=== PATIENT | female | born 1935 | race Caucasian/White ===

== ENCOUNTER → 2017-01-25 | Outpatient (CLI) | payer OTHER | END | disposition home or self-care (01) | LOC: PCVCCLINIC 11:35 | PROVIDERS: ATTEND Internal Medicine Cardiovascular Disease | DX: I47.1 Supraventricular tachycardia (principal); I10 Essential (primary) hypertension; I25.3 Aneurysm of heart; E03.9 Hypothyroidism, unspecified; Z85.850 Personal history of malignant neoplasm of thyroid; Z90.710 Acquired absence of both cervix and uterus; Z79.82 Long term (current) use of aspirin; Z87.891 Personal history of nicotine dependence; Z88.0 Allergy status to penicillin | CPT/HCPCS: 80061; G0463 ==

== ENCOUNTER → 2017-03-08 | Outpatient (CLI) | payer OTHER ==
[~2017-03-08] MED LIST: ASPIRIN 325 MG TABLET ONE
--- NOTE | 2017-03-08 14:28 | PCVCIMAG ---
APPROVED REPORT Exam: Stress Echocardiogram Indication: Hyperlipidemia, Hypertension, Patient Location: Echo lab Stress Nurse: Jazz Cueto RN Status: routine Ht: 5 ft 4 in HR: 77 bpm BP: 140/80 mmHg Rhythm: NSR Procedure The patient underwent an Exercise Stress Test using the Ron Protocol. Blood pressure, heart rate, and EKG were monitored. An Echocardiogram was performed by reproduction technician in four stages in quad fashion. At peak stress, four selected images were obtained and placed side by side with resting images for comparison. Stress Test Details Stress Test: Exercise stress testing was performed using a Ron protocol. HR Resting HR: 77 bpmMax Heart Rate (APMHR): 141 bpm Max HR Achieved: 150 bpmTarget HR (85% APMHR): 119 bpm % of APMHR: 106 HR response to stress: Normal HR response to stress BP Resting BP: 140/80 mmHg Max BP: 162/82 mmHg ECG Resting ECG: Sinus Rhythm Stress ECG: Sinus Rhythm Arrhythmia: VPC's Recovery ECG: Sinus Rhythm Recovery ST Change: ST Elevation, ST depression. Recovery Arrhythmia: VPC Clinical Reason for Termination: Maximal effort Exercise duration: 7 min 48 sec Highest Stage Achieved: Stage 3: 3.4 mph at 14% grade. Exercise capacity: 10.10 METs Overall Exercise Capacity for Age: Normal Pre-Stress Echo The resting Echocardiogram showed normal left ventricular contractility with an estimated Ejection Fraction of about >55%. Post-Stress Echo The stress Echocardiogram showed abnormal left ventricular contractility with an estimated Ejection Fraction of about 50-55%. Distal Septum, Apical, Anterior and lateral wall hypokinesis. Conclusion Clinical Response: Ischemic Exercise Capacity: Average Stress ECG Response: Ischemic Stress Echo Images: Ischemic Other Information Study Quality: Good
== END | disposition home or self-care (01) ==
LOC: PCVCIMAG 10:53
PROVIDERS: ATTEND Internal Medicine Cardiovascular Disease
DX: I10 Essential (primary) hypertension (principal); E78.5 Hyperlipidemia, unspecified
CPT/HCPCS: 93325; 93351

== ENCOUNTER → 2017-04-26 | Outpatient (CLI) | payer OTHER ==
--- NOTE | 2017-04-26 15:01 | PCVCIMAG ---
APPROVED REPORT Study performed: 04/26/2017 11:02:27 EXAM: Comprehensive 2D, Doppler, and color-flow Echocardiogram Patient Location: Echo lab Status: routine BSA: 1.67 HR: 53 bpmBP: 140/82 mmHg Rhythm: Bradycardia Other Information Study Quality: Adequate Risk Factors: Cardiac Risk Factors: HTN Indications Dyspnea Cardiomyopathy PSVT, hx of takostubo cardiomyopathy, assess LV function 2D Dimensions LVEF(%): 39.01 (>50%) IVSd: 9.51 (7-11mm) LVDd: 46.91 mm PWd: 9.06 (7-11mm) LVDs: 38.05 (25-40mm) Left Atrium: 41.58 (27-40mm) Aortic Root: 33.54 mm LV Single Plane 4CH: 61.64 % LV Single Plane 2CH: 61.92 %Curtis's LVEF: 61.78 % Biplane EF: 62.1 % Volumes Left Atrial Volume (Systole) Single Plane 4CH: 74.24 mLSingle Plane 2CH: 47.34 mL LA ESV Index: 40.00 mL/m2 Aortic Valve AoV Peak Moshe.: 1.12 m/s AO Peak Gr.: 5.02 mmHgLVOT Max P.02 mmHg LVOT Max V: 0.87 m/s AI Vmax: 4.41 m/s AI Trego: 2.09 m/s2 AI PHT: 610.09 ms Mitral Valve E/A Ratio: 0.7 MV Decel. Time: 312.49 ms MV E Max Moshe.: 0.57 m/s MV A Moshe.: 0.81 m/s MV PHT: 90.62 ms IVRT: 148.79 ms Pulmonary Valve PV Peak Moshe.: 0.80 m/sPV Peak Gr.: 2.54 mmHg Pulmonary Vein P Vein S: 0.27 m/sP Vein A: 0.83 m/s P Vein D: 0.35 m/sP Vein A Dur.: 145.3 msec P Vein S/D Ratio: 0.77 Tricuspid Valve TR Peak Moshe.: 2.82 m/s TR Peak Gr.: 31.87 mmHg Left Ventricle The left ventricle is normal size. There is normal LV segmental wall motion. There is normal left ventricular wall thickness. Left ventricular systolic function is normal. The left ventricular ejection fraction is within the normal range. LVEF is 60-65%. Grade I - abnormal relaxation pattern. Right Ventricle The right ventricle is normal size. The right ventricular systolic function is normal. Atria Left atrium is mildly dilated. Aneurysmal atrial septum, no PFO noted. The right atrium size is normal. Aortic Valve The aortic valve is normal in structure. Mild aortic regurgitation. There is no aortic valvular stenosis. Mitral Valve The mitral valve is normal in structure. Trace mitral regurgitation. No evidence of mitral valve stenosis. Tricuspid Valve The tricuspid valve is normal in structure. There is no tricuspid valve regurgitation noted. Pulmonic Valve The pulmonary valve is normal in structure. There is no pulmonic valvular regurgitation. Great Vessels The aortic root is normal in size. IVC is normal in size and collapses with >50% inspiration Pericardium There is no pericardial effusion. <Conclusion> The left ventricle is normal size. LVEF is 60-65%. Grade I - abnormal relaxation pattern. The right ventricle is normal size. Left atrium is mildly dilated. The right atrium size is normal. Mild aortic regurgitation. There is no aortic valvular stenosis. Trace mitral regurgitation. There is no tricuspid valve regurgitation noted. There is no pericardial effusion.
== END | disposition home or self-care (01) ==
LOC: PCVCIMAG 10:36
PROVIDERS: ATTEND Internal Medicine Cardiovascular Disease
DX: I10 Essential (primary) hypertension (principal); I51.81 Takotsubo syndrome; I48.0 Paroxysmal atrial fibrillation; I47.1 Supraventricular tachycardia; I25.3 Aneurysm of heart; I25.10 Atherosclerotic heart disease of native coronary artery without angina pectoris; R94.31 Abnormal electrocardiogram [ECG] [EKG]; R06.00 Dyspnea, unspecified; Z87.891 Personal history of nicotine dependence; Z79.899 Other long term (current) drug therapy
CPT/HCPCS: 93005; 93306; G0463

== ENCOUNTER → 2017-08-26 | Outpatient (CLI) | payer OTHER ==
[~2017-08-26] MED LIST changes: -ASPIRIN 325 MG TABLET ONE; +REGADENOSON 0.4 MG/5 ML DISP.SYRIN. IV
== END | disposition home or self-care (01) ==
LOC: PCVCIMAG 08:11
DX: I48.0 Paroxysmal atrial fibrillation (principal); I25.10 Atherosclerotic heart disease of native coronary artery without angina pectoris; I42.9 Cardiomyopathy, unspecified; I10 Essential (primary) hypertension; E78.5 Hyperlipidemia, unspecified
CPT/HCPCS: 78452; 93017; A9500; J2785

== ENCOUNTER → 2018-04-29 | Outpatient (CLI) | payer OTHER | END | disposition home or self-care (01) | LOC: PCVCCLINIC 14:00 | PROVIDERS: ATTEND Internal Medicine Cardiovascular Disease | DX: I25.10 Atherosclerotic heart disease of native coronary artery without angina pectoris (principal); R94.31 Abnormal electrocardiogram [ECG] [EKG]; I51.81 Takotsubo syndrome; I47.1 Supraventricular tachycardia; I10 Essential (primary) hypertension; R06.00 Dyspnea, unspecified; R07.9 Chest pain, unspecified; E03.9 Hypothyroidism, unspecified; R09.89 Other specified symptoms and signs involving the circulatory and respiratory systems; Z88.0 Allergy status to penicillin; Z79.899 Other long term (current) drug therapy; Z87.891 Personal history of nicotine dependence | CPT/HCPCS: 36415; 80061; 93005; G0463 ==

== ENCOUNTER → 2018-06-14 | Outpatient (CLI) | payer OTHER ==
--- NOTE | 2018-06-14 14:21 | PCVCIMAG ---
EXAM: BILATERAL CAROTID DUPLEX INDICATION: Carotid Occlusive Disease. FINDINGS: Doppler Measurements (centimeters per second): RIGHT: Peak CCA-76, Peak ECA-87, Diastolic ICA-19, Peak ICA-78, ICA/CCA Ratio-1.0. LEFT: Peak CCA-80, Peak ECA-93, Diastolic ICA-18, Peak ICA-77, ICA/CCA Ratio-1.0. RIGHT CAROTID: The carotid bulb has minimal plaque. The proximal internal carotid artery shows no significant stenosis. The common carotid artery shows no significant stenosis. The external carotid artery shows no significant stenosis. LEFT CAROTID: The carotid bulb has minimal plaque. The proximal internal carotid artery shows no significant stenosis. The common carotid artery shows no significant stenosis. The external carotid artery shows no significant stenosis. Antegrade flow in both vertebral arteries. IMPRESSION: No significant stenosis of the right internal carotid artery with minimal plaque. No significant stenosis of the left internal carotid artery with minimal plaque. LOC:[id number]
--- NOTE | 2018-06-14 17:03 | PCVCIMAG ---
APPROVED REPORT Study performed: 06/14/2018 13:42:54 Exam: Stress Echocardiogram Indication: CAD , TAKOTSUBO CARDIOMYOPATHY Patient Location: Echo lab Stress Nurse: Emi Briscoe RN Room #: 2 Status: routine Ht: 5 ft 4 in HR: 62 bpm BP: 180/74 mmHg Rhythm: NSR, , First degree AV Block Medical History Medical History: CAD non obstructive, Cardiomyopathy, HTN Cardiac Risk Factors: HTN Previous Cardiac Procedures: CATH- NO STENT Pretest Chest Pain Characteristics: No chest pain Exercise History: Indeterminate Procedure The patient underwent an Exercise Stress Test using the Ron Protocol. Blood pressure, heart rate, and EKG were monitored. An Echocardiogram was performed by hazardous waste technician in four stages in quad fashion. At peak stress, four selected images were obtained and placed side by side with resting images for comparison. Stress Test Details Stress Test: Exercise stress testing was performed using a Ron protocol. HR Resting HR: 62 bpmMax Heart Rate (APMHR): 139 bpm Max HR Achieved: 116 bpmTarget HR (85% APMHR): 118 bpm % of APMHR: 83 Recovery HR: 74 bpm HR response to stress: Normal HR response to stress BP Resting BP: 180/74 mmHg Max BP: 184/74 mmHg Recovery BP: 166/74 mmHg BP response to stress: hypertensive at rest, blunted response to stress. ECG Resting ECG: Sinus Rhythm, nonspecific ST-T abnormalities Stress ECG: Sinus Rhythm,, 1st degree AV block ST Change: Non-ischemic Arrhythmia: Rare PVCs Recovery ECst degree AV block Recovery ST Change: Non-ischemic Recovery Arrhythmia: None Clinical Reason for Termination: Maximal effort Stress Symptoms: Fatigue Exercise duration: 6 min 27 sec Highest Stage Achieved: Stage 2: 2.5 mph at 12% grade. Exercise capacity: 8.3 METs Overall Exercise Capacity for Age: Average Scale: Active Angina Score: None No complications. Stress ECG Conclusion The patient exercised according to the RON protocol for 6:27 mins; achieving a work level of 8.3 METS. The resting heart rate of 62 bpm enma to a maximum heart rate of 116 bpm. This value represent 83% of the maximal, age-predicted heart rate. The resting blood pressure of 180/74 mmHg, enma to a maximum blood pressure of 184/74 mmHg. The exercise test was stopped due to fatigue. Pre-Stress Echo The resting Echocardiogram showed normal left ventricular contractility with an estimated Ejection Fraction of about 55-60%. Normal wall motion in all segments on baseline images. Post-Stress Echo The stress Echocardiogram showed normal left ventricular contractility with an estimated Ejection Fraction of about 65-70%. Normal augmentation of wall motion in all segments on post stress images. Clinical No clinical or ECG evidence for ischemia. Conclusion Clinical Response: Non-ischemic Exercise Capacity: Below Average Stress ECG Response: Indeterminant Stress Echo Images: Non-ischemic No clinical, EKG or echocardiographic evidence for ischemia. Normal stress echocardiogram with submaximal exercise stress. <Conclusion> No clinical, EKG or echocardiographic evidence for ischemia. Normal stress echocardiogram with submaximal exercise stress.
== END | disposition home or self-care (01) ==
LOC: PCVCIMAG 13:25
PROVIDERS: ATTEND Internal Medicine Cardiovascular Disease
DX: I65.23 Occlusion and stenosis of bilateral carotid arteries (principal); I25.10 Atherosclerotic heart disease of native coronary artery without angina pectoris; I11.9 Hypertensive heart disease without heart failure; I47.1 Supraventricular tachycardia; R06.00 Dyspnea, unspecified; R07.9 Chest pain, unspecified; E78.2 Mixed hyperlipidemia; R09.89 Other specified symptoms and signs involving the circulatory and respiratory systems
CPT/HCPCS: 93325; 93351; 93880

== ENCOUNTER → 2019-01-20 | Outpatient (CLI) | payer OTHER | END | disposition home or self-care (01) | LOC: PCVCCLINIC 13:30 | PROVIDERS: ATTEND Internal Medicine Cardiovascular Disease | DX: I25.10 Atherosclerotic heart disease of native coronary artery without angina pectoris (principal); E78.00 Pure hypercholesterolemia, unspecified; I51.81 Takotsubo syndrome; I47.1 Supraventricular tachycardia; I10 Essential (primary) hypertension; I48.0 Paroxysmal atrial fibrillation; Z88.0 Allergy status to penicillin | CPT/HCPCS: 36415; 80061; 93005; G0463 ==